=== PATIENT | male | born 2000 | race African-American/Black ===

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

== ENCOUNTER 2020-07-03 19:29 | Emergency (ER) | payer BC, OTHER ==
[2020-07-03 20:18] LABS: #Eosinphils 0.1 thou/uL (0.0-0.7); #Lymphocytes 1.4 thou/uL (1.20-3.40); #Monocytes 0.5 thou/uL (0.11-0.59); #Neutrophils 3.3 thou/uL (1.40-6.50); %Basophils 0.6 % (0.0-1.0); %Eosinophils 1.4 % (0.0-10.0); %Lymphocytes 26.5 % (28.0-48.0); %Monocytes 9.7 % (0.0-4.0); %Neutrophils 61.8 % (31.0-61.0); Hemoglobin 14.4 g/dL (14.0-18.0); Mean Corpuscular HGB CONC 32.3 g/dL (32.0-36.0); Mean Corpuscular Hemoglobin 31.1 pg (25.0-35.0); Mean Corpuscular Volume 96.4 fL (78.0-98.0); Mean Platelet Volume 8.5 fL (7.4-10.4); Platelet Count 216 thou/uL (130-400); RBC Distribution Width 11.2 % (11.5-14.5); Red Blood Cell (RBC) Count 4.63 mill/uL (4.00-5.20); White Blood Cell (WBC) Count 5.3 thou/uL (4.8-10.8)
[2020-07-03 20:39] LABS: ALT (SGPT) 7 U/L (8-55); AST (SGOT) 16 U/L (10-45); Albumin 4.4 g/dL (3.5-5.0); Alkaline Phosphatase 73 U/L (50-130); Anion Gap 11 mmol/L (10-20); BUN (Urea Nitrogen) 10 mg/dL (8.4-21.0); Bilirubin, Total 0.4 mg/dL (0.2-1.2); Calc. Creatinine Clearance 0 mL/min (70-130); Carbon Dioxide 30 mmol/L (22-29); Chloride 104 mmol/L (98-107); Estimated GFR-MDRD Greater than 90; Globulin 3.2 g/dL (2.4-3.5); Glucose 92 mg/dL (70-105); Potassium 4.3 mmol/L (3.5-5.1); Protein, Total 7.6 g/dL (6.0-8.3); Sodium 141 mmol/L (136-145)
--- NOTE | 2020-07-03 22:26 | RAD ---
RADIOGRAPH CHEST 1 VIEW: DATE: 07/03/2020 HISTORY: 19-year-old male with chest pain and cough FINDINGS: There are no airspace densities, pulmonary edema, pneumothorax, or cardiomegaly. The lateral costophr enic angles are sharp. IMPRESSION: No acute cardiopulmonary findings.
[2020-07-03] MEDS ORDERED: Aspirin Chewable 81 MG TAB ONE (22:52)
[2020-07-04 12:43] LABS: SARS-CoV-2 MS2 Positive; SARS-CoV-2 N Gene Positive; SARS-CoV-2 S Gene Positive; SARS-CoV-2 by NAA DETECTED (NotDetected); SARS-CoV-2 orf1ab Positive
== END 2020-07-03 23:33 | disposition home or self-care (01) ==
LOC: ERS 19:29
DX: U07.1 COVID-19 (principal); I31.9 Disease of pericardium, unspecified
CPT/HCPCS: 36415; 71045; 80053; 83880; 84484; 85025; 87635; 93005; U0003